=== PATIENT | female | born 1960 | race African-American/Black ===

== ENCOUNTER 2020-11-22 19:49 | Emergency (ER) | payer MEDICAID ==
[~2020-11-22] VITALS: Ht 149.9 cm; Wt 104.3 kg
[2020-11-22 19:55] VITALS: BP_SYST 161
--- NOTE | 2020-11-22 21:10 | NUR ---
ER examining patient in the triage room.
--- NOTE | 2020-11-22 21:27 | NUR ---
Patient to ER bed 8 to gown for evaluation. Side rails up. Report given to Elli RAMIREZ.
--- NOTE | 2020-11-22 21:32 | NUR ---
PATIENT ALERT & ORIENTED X4 FROM HOME C/O BILATERAL SWELLING & PAIN TO EXTREMITIES X5 DAYS. PATIENT REPORTS SHE TOOK "PEE PILLS" ABOUT 5 DAYS AGO TO HELP WITH SWELLING BUT IS NOT CONSISTENT WITH MEDICATION. PATIENT STATES SHE "FEELS LUMPS ON BACK OF THIGH". PATIENT REPORTS PAIN IS A 7 OUT OF 10. WILL CONTINUE TO MONITOR.
--- NOTE | 2020-11-22 21:36 | NUR ---
PATIENT AMBULATED TO RESTROOM WITH STEADY GAIT.
[2020-11-22 22:07] LABS: BASOPHILS # (AUTO) 0.1 K/uL (0.0-0.2); EOSINOPHILS # (AUTO) 0.3 K/uL (0.0-0.4); HEMATOCRIT 35.5 % (36-48); HEMOGLOBIN 11.5 g/dL (12.0-16.0); LYMPHOCYTES # (AUTO) 1.7 K/uL (1.0-5.5); LYMPHOCYTES % (AUTO) 27.3 % (20.5-51.5); MEAN CORPUSCULAR HEMOGLOBIN 31 pg (27-31); MEAN CORPUSCULAR HGB CONC 32 % (32-36); MEAN CORPUSCULAR VOLUME 96 fL (79.0-98.0); MONOCYTES # (AUTO) 0.5 K/uL (0.0-1.0); MONOCYTES % (AUTO) 8.4 % (1.7-9.3); NEUTROPHILS # (AUTO) 3.7 K/uL (1.8-7.7); NEUTROPHILS % (AUTO) 59.3 % (40.0-70.0); PLATELET COUNT (AUTO) 370 K/uL (130-430); RED CELL DISTRIBUTION WIDTH 21.2 % (9.0-15.0); WHITE BLOOD COUNT (AUTO) 6.2 K/uL (4.8-10.8)
[2020-11-22 22:16] LABS: CALCIUM 8.6 mg/dL (8.4-11.0); CREATININE 0.52 mg/dL (0.55-1.30)
[2020-11-22 22:23] LABS: POTASSIUM 2.9 mmol/L (3.5-5.1)
[2020-11-22] MEDS ORDERED: POTASSIUM CHLORIDE 10 MEQ TAB.PRT.SR PO ONE (22:30)
--- NOTE | 2020-11-22 22:48 | NUR ---
ER Dr. ANDINO at bedside examining patient.
--- NOTE | 2020-11-22 22:56 | NUR ---
PATIENT MEDICATED PER MD ORDERS. PATIENT TOLERTAED WELL
[2020-11-22 23:01] VITALS: BP_SYST 133
--- NOTE | 2020-11-22 23:01 | NUR ---
Patient given written and verbal discharge instructions and verbalizes understanding. ER MD discussed with patient the results and treatment provided. Patient in stable condition. ID arm band removed. Rx of K-DUR given. Patient educated on pain management and to follow up with PMD. Pain Scale 2/10. Opportunity for questions provided and answered. Medication side effect fact sheet provided.
== END 2020-11-22 23:01 | disposition home or self-care (01) ==
LOC: SED 19:49
DX: M79.89 Other specified soft tissue disorders (principal); M79.651 Pain in right thigh
CPT/HCPCS: 36415; 80048; 83880; 85025; 99283